=== PATIENT | male | born 1945 | race Caucasian/White ===

== ENCOUNTER 2025-08-16 09:07 | Outpatient (CLI) | payer OTHER ==
[~2025-08-16 09:07] MED LIST: ALDACTONE25 MG PO; ASPIR 8181 MG PO; ATORVASTATIN CA20 MG PO; BRILINTA90 MG PO; ENALAPRIL MALEA20 MG PO; NEURONTIN300 MG PO; POLY119PG PO; TOPROL XL25 M1 PO; ULTRACET PO; ZOFRAN ODT4 MG PO; [UNRECOGNIZED DRUG - OTHER] PO
[2025-08-16 10:42] LABS: BASO % 0.3 % (0.1-1.2); EOS # 0.07 (0.04-0.54); EOS % 1.1 % (0.7-7.0); LYMPH # 1.50 (1.18-3.74); LYMPH % 22.6 % (19.3-53.1); MEAN PLATELET VOLUME 11.50 fl (9.4-12.4); MONO # 0.49 (0.24-0.82); MONO % 7.4 % (4.7-12.5); NEUT # 4.53 (1.56-6.13); NEUT % 68.3 % (34.0-71.1)
[2025-08-16 11:09] LABS: RED CELL DISTRIBUTION WIDTH 11.8 % (11.6-14.4)
[2025-08-16 11:18] LABS: BUN CREA RATIO 16.0 (7.0-25.0); CREATININE SERUM 0.99 mg/dL (0.70-1.30); GFR 73.11; GLUCOSE FASTING 94.0 mg/dL (65-100); OSMOLALITY SERUM 286.0 MOSM/KG (275-295)
[2025-08-16 11:19] LABS: INR 1.19
[2025-08-16 11:21] LABS: URINE APPEARANCE Clear; URINE BILIRRUBIN Negative (NEGATIVE); URINE BLOOD Negative; URINE COLOR Dark Yellow; URINE GLUCOSE Negative (NEGATIVE); URINE KETONE Trace (NEGATIVE); URINE LEUKOCYTE Trace; URINE NITRATE Negative; URINE PROTEIN Trace (NEGATIVE); URINE UROBILINOGEN 1.0 E.U./dl
[2025-08-16 11:27] LABS: URINE BACTERIA 15.5 uL (0.0-1933); URINE CAST 9.67 uL (0.0-1.40); URINE EPITHELIAL CELLS 10.3 uL (0.0-38.8); URINE RBC 21.1 uL (0.0-20.8); URINE WBC 7.6 uL (0.0-23.2)
[2025-08-16 12:41] LABS: URINE CRYSTALS MODERATE /HPF
== END 2025-08-16 09:23 | disposition home or self-care (01) ==
LOC: LAB 09:07
PROVIDERS: ATTEND Surgery
DX: R10.9 Unspecified abdominal pain (principal); Z03.818 Encounter for observation for suspected exposure to other biological agents ruled out; I10 Essential (primary) hypertension

== ENCOUNTER 2025-09-16 09:00 | Day surgery (SDC) | payer OTHER ==
[2025-09-16] MEDS ORDERED: CEFAZOLIN SODIUM 1,000 MG VIAL ONE (09:47)
[2025-09-16] MEDS ORDERED: TYLENOL ARTHRI650 MG PO (09:53)
[2025-09-16] MEDS ORDERED: MIRALAX17 GM PO (09:53)
[2025-09-16] MEDS ORDERED: TRAMADOL HCL50 MG PO (09:53)
[2025-09-16] MEDS ORDERED: BUPIVACAINE HCL/Mpf 0.5% 10ML VIAL ONE (11:28)
[2025-09-16] MEDS ORDERED: BUPIVACAINE HCL/MPF 0.5% 30ML VIAL ONE (11:28)
[2025-09-16] MEDS ORDERED: TAMSULOSIN HCL 0.4 MG CAP PO ONE ×2 (22:30→22:32)
[2025-09-16] MEDS ORDERED: FINASTERIDE 5 MG TABLET PO ONE (22:30)
== END 2025-09-16 23:25 | disposition home or self-care (01) ==
LOC: CIR.AMB 09:00
PROVIDERS: ATTEND Surgery
DX: K40.30 Unilateral inguinal hernia, with obstruction, without gangrene, not specified as recurrent (principal)
CPT/HCPCS: 49507; C1781